=== PATIENT | female | born 2000 | race Two or more races ===

== ENCOUNTER 2021-04-16 18:11 | Emergency (ER) | payer OTHER ==
[~2021-04-16] VITALS: Ht 154.9 cm; Wt 52.2 kg
== END 2021-04-16 22:05 | disposition home or self-care (01) ==
LOC: EMR PED 18:11
DX: R59.0 Localized enlarged lymph nodes (principal); Z03.818 Encounter for observation for suspected exposure to other biological agents ruled out

== ENCOUNTER 2021-04-29 15:24 | Emergency (ER) | payer OTHER ==
[~2021-04-29] VITALS: Ht 152.4 cm; Wt 52.2 kg
== END 2021-04-29 20:56 | disposition home or self-care (01) ==
LOC: EMR PED 15:24
DX: R19.7 Diarrhea, unspecified (principal); E86.0 Dehydration; Z03.818 Encounter for observation for suspected exposure to other biological agents ruled out